=== PATIENT | male | born 1970 | race Caucasian/White ===

== ENCOUNTER 2019-01-02 13:00 | Emergency (ER) | payer MEDICAID ==
[~2019-01-02] VITALS: Ht 172.7 cm; Wt 68.2 kg
[2019-01-02 13:04] VITALS: BP 150/87
--- NOTE | 2019-01-02 13:44 | NUR ---
C/O NAUSEA "I TOOK A NAP AND WOOK UP WITH ABD PAIN. I THINK I ATE SOMETHING BAD. MAYBE SOME BATTERIES OR FUNNY FOOD." PATIENT DENIES ILLICITS. HOWEVER, SELLING MANAGER SUSPECTS STIMULANT USE DENIES DIARRHEA
--- NOTE | 2019-01-02 13:50 | NUR ---
PATIENT TO RADIOLOGY
[2019-01-02 14:19] LABS: BASOPHILS # (AUTO) 0.03 x10^3/uL (0-0.1); BASOPHILS % (AUTO) 0 % (0-1); EOSINOPHILS % (AUTO) 0 % (1-7); LYMPHOCYTES # (AUTO) 1.67 x10^3/uL (1-3.4); LYMPHOCYTES % (AUTO) 21 % (22-44); MD NO; MEAN CORPUSCULAR HEMOGLOBIN 31.7 pg (27.5-34.5); MEAN CORPUSCULAR HGB CONC 33.6 g/dL (33.2-36.2); MEAN CORPUSCULAR VOLUME 94.2 fL (81-97); MEAN PLATELET VOLUME 7.7 fL (7.4-10.4); MONOCYTES # (AUTO) 0.72 x10^3/uL (0.2-0.8); MONOCYTES % (AUTO) 9 % (2-9); NEUTROPHILS # (AUTO) 5.61 x10^3/uL (1.8-6.8); NEUTROPHILS % (AUTO) 70 % (42-75); PLATELET COUNT 325 x10^3/uL (130-400); RED BLOOD COUNT 5.01 x10^6/uL (4.38-5.82); RED CELL DISTRIBUTION WIDTH 12.6 % (9.4-14.8)
[2019-01-02 14:31] LABS: ALANINE AMINOTRANSFERASE 55 U/L (12-78); ANION GAP 9 mmol/L (5-15); CALCIUM 9.1 mg/dL (8.5-10.1); CHLORIDE 105 mmol/L (98-107); CREATININE 0.98 mg/dL (0.7-1.3); SALICYLATE LEVEL < 1.7 mg/dL (2.8-20.0)
[2019-01-02 14:45] LABS: ALKALINE PHOSPHATASE 65 U/L (45-117); BILIRUBIN,TOTAL 0.6 mg/dL (0.2-1.0)
--- NOTE | 2019-01-02 14:50 | NUR ---
WITH REASSESSMENT NAUSEA IMPROVED PATIENT UPDATED ON POC (WAITING ON TESTING RESULTS) REPORT TO ZAKI GATES
== END 2019-01-02 15:35 | disposition home or self-care (01) ==
LOC: ED 14:14
DX: F29 Unspecified psychosis not due to a substance or known physiological condition (principal); F20.0 Paranoid schizophrenia; F10.950 Alcohol use, unspecified with alcohol-induced psychotic disorder with delusions; R10.84 Generalized abdominal pain; F17.200 Nicotine dependence, unspecified, uncomplicated
CPT/HCPCS: 36415; 71045; 74018; 80053; 80307; 85025; 99284

== ENCOUNTER 2019-10-08 17:08 | Emergency (ER) | payer SELFPAY ==
[~2019-10-08] VITALS: Ht 172.7 cm; Wt 65.3 kg
--- NOTE | 2019-10-08 17:11 | NUR ---
RESIDENT CARE ASSOCIATE: NO ANSWER X1 TO TRIAGE AT THIS TIME
[2019-10-08 17:21] VITALS: BP 144/86
--- NOTE | 2019-10-08 17:46 | NUR ---
PT STATES "IM FRIED MOM" PT ON PHONE WITH MOTHER, YELLING, REFUSING TO GET OFF PHONE OR LOWER VOICE, PT WITH HAND IN PANTS. SECURITY CALLED TO ASSIST PT TO [place], PT STATES AT THIS TIME HE WILL BE COOPERATIVE. PT TO SHARM[place]A AT THIS TIME.
[2019-10-08] MEDS ORDERED: LORazepam 1MG TABLET ONE (17:58)
[2019-10-08] MEDS ORDERED: LORazepam 1MG TABLET PO ONE (18:00)
[2019-10-08] MEDS ORDERED: DIPH,PERTUSS(ACELL),TET VAC/PF 0.5 ML IM-VACC ONE ×2 (19:20→19:30)
== END 2019-10-08 19:54 | disposition home or self-care (01) ==
LOC: ED 18:05
DX: F16.121 Hallucinogen abuse with intoxication with delirium (principal); I51.7 Cardiomegaly; F17.200 Nicotine dependence, unspecified, uncomplicated
CPT/HCPCS: 90471; 90715; 93005; 99283

== ENCOUNTER 2019-10-10 00:05 | Emergency (ER) | payer MEDICAID ==
[~2019-10-10] VITALS: Ht 180.3 cm; Wt 80.0 kg
--- NOTE | 2019-10-10 00:33 | NUR ---
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 PT WAS AGITATED AND UNABLE TO FOLLOW COMMANDS OF EMS OR [facility]. EMS REPORTS PT WAS DIAPHORETIC AND TACHYPNEIC. EMS ADMINISTERED 300MG OF KETAMINE IM, AND A TOTAL OF VERSED 7MG. PT IN RESTRAINTS UPON ARRIVAL TO THE ER, BECAME AGITATED WHEN MOVING PT FROM EMS STRETCHER. SECURITY CALLED AND PT CONTINUED IN 4 POINT RESTRAINTS FOR THE SAFETY OF HIMSELF AND STAFF. DR. AL AT BEDSIDE.
[2019-10-10] MEDS ORDERED: HALOPERIDOL 5 MG/ML ONE (00:53)
[2019-10-10] MEDS ORDERED: HALOPERIDOL 5 MG/ML IM ONE (01:00)
--- NOTE | 2019-10-10 01:02 | NUR ---
PT CONTINUES TO BE LOUD, SCREAMING, JERKING AT RESTRAINTS. PULLED IV OUT. PT MEDICATED WITH 10MG OF IM HALDOL. ALL MONITORING EQUIPMENT REMAINS IN PLACE.
--- NOTE | 2019-10-10 01:14 | NUR ---
TASK RN: LAB IN TO DRAW. PT RESTLESS/YELLING. TECH X TWO AT BEDSIDE TO ASSIST WITH LAB DRAW
[2019-10-10 01:33] LABS: ALANINE AMINOTRANSFERASE 118 U/L (12-78); ALBUMIN 3.9 g/dL (3.4-5.0); ANION GAP 9 mmol/L (5-15); CALCIUM 9.4 mg/dL (8.5-10.1); CHLORIDE 107 mmol/L (98-107)
[2019-10-10 01:35] LABS: ALKALINE PHOSPHATASE 56 U/L (45-117); BILIRUBIN,TOTAL 1.5 mg/dL (0.2-1.0); TOTAL PROTEIN 6.9 g/dL (6.4-8.2)
--- NOTE | 2019-10-10 01:36 | NUR ---
TASK RN: PT NOW MOSTLY DROWSY. EVEN/REGULAR RESPIRATIONS NOTED. VS WNL. RESTRAINTS REMAIN IN PLACE PENDING CONTINUED IMPROVED BEHAVIOR. DISTAL EXTREMITIES WITH GOOD CAP REFILL. SITTER PRESENT.
[2019-10-10 01:40] LABS: BASOPHILS # (AUTO) 0.03 x10^3/uL (0-0.1); BASOPHILS % (AUTO) 0 % (0-1); EOSINOPHILS % (AUTO) 0 % (1-7); LYMPHOCYTES # (AUTO) 0.95 x10^3/uL (1-3.4); LYMPHOCYTES % (AUTO) 6 % (22-44); MD NO; MEAN CORPUSCULAR HEMOGLOBIN 32.5 pg (27.5-34.5); MEAN CORPUSCULAR HGB CONC 34.5 g/dL (33.2-36.2); MEAN CORPUSCULAR VOLUME 94.2 fL (81-97); MEAN PLATELET VOLUME 7.9 fL (7.4-10.4); MONOCYTES # (AUTO) 0.83 x10^3/uL (0.2-0.8); MONOCYTES % (AUTO) 5 % (2-9); NEUTROPHILS # (AUTO) 15.32 x10^3/uL (1.8-6.8); NEUTROPHILS % (AUTO) 90 % (42-75); PLATELET COUNT 374 x10^3/uL (130-400); RED CELL DISTRIBUTION WIDTH 13.1 % (9.4-14.8)
--- NOTE | 2019-10-10 02:28 | NUR ---
PT YELLING. THIS RN ASKED PT WHY HE WAS YELLING AND HE STATES "THIS SHIT IS HURTING MY ARM". PT ABLE TO CONVERE AT THIS TIME, ANSWERING MOST QUESTIONS APPROPRIATELY. DOES NOT RECALL PRIOR EVENTS LEADING UP TO HIS VISIT HERE. PT EDUCATED ON WHY HE WAS PLACED IN RESTRAINTS. PT STATES HE WILL COOPERATE. SECURITY CALLED AND PT PLACED IN 2 POINT RESTRAINTS.
--- NOTE | 2019-10-10 02:53 | NUR ---
PT COOPERATIVE, SLEEPING, RESPIRATIONS EVEN AND UNLABORED. NO DISTRESS NOTED. VITALS STABLE.
--- NOTE | 2019-10-10 03:09 | NUR ---
PT CONTINUES TO BE COOPERATIVE. ALL RESTRAINTS REMOVED. PT PROVIDED WITH WATER AND FOOD.
[2019-10-10 03:31] VITALS: BP 125/71
--- NOTE | 2019-10-10 04:10 | NUR ---
PT CONTINUES TO SLEEP. ALL VITALS STABLE.
--- NOTE | 2019-10-10 05:18 | NUR ---
PT WOKEN UP, ALERT AND ORIENTED. PT IS BEING DISCHARGED. PT STATES "I DON'T HAVE ANYWHERE TO GO, CAN I JUST SLEEP HERE". PT ADVISED HE CAN NO LONGER STAY HERE AND WILL BE PROVIDED A CAB VOUCHER TO THE RETIREMENT. "FUCK THAT, I AIN'T GOING TO NO RETIREMENT. I NEED A BUS TICKET TO MY UNCLE'S HOUSE IN [place]".
--- NOTE | 2019-10-10 05:33 | NUR ---
PT PROVIDED WITH NEW CLOTHING DUE TO HIS OTHER CLOTHING BEING SOILED.
--- NOTE | 2019-10-10 05:44 | NUR ---
PT HAS TO CONTINUALLY BE ASKED TO GET DRESSED, HE KEEPS LYING BACK DOWN ON THE BED AND FALLING ASLEEP. PT WOKEN UP MULTIPLE TIMES. HE CONTINUES TO SAY "I DON'T HAVE ANYWHERE TO GO", HE ALSO STATES "I'M GONNA FALL DOWN". PT HAS BEEN WALKING AROUND ROOM WITH A STEADY GAIT UNTIL HE WAS ASKED TO BE DISCHARGED. HE ALSO STATES "I NEED TO STAY, I NEED AN IV, I DON'T HAVE ANYWHERE TO GO". PT ALSO OFFERED A CAB VOUCHER ONCE AGAIN REFUSES SAYING "FUCK THAT, I AINT GOING TO NO CARE HOME"
--- NOTE | 2019-10-10 05:50 | NUR ---
SECURITY CALLED TO ESCORT TO PT OUT
== END 2019-10-10 05:52 | disposition home or self-care (01) ==
LOC: ED 02:58
DX: F16.10 Hallucinogen abuse, uncomplicated (principal); F22 Delusional disorders; F23 Brief psychotic disorder
CPT/HCPCS: 36415; 80053; 85025; 96372; 99283; J1630

== ENCOUNTER 2019-10-17 16:27 | Emergency (ER) | payer MEDICAID ==
[~2019-10-17] VITALS: Ht 165.1 cm; Wt 65.0 kg
--- NOTE | 2019-10-17 16:47 | NUR ---
PT REFUSED BLOOD PRESSURE. PT REFUSES TO HOLD STILL FOR BLOOD PRESSURE
[2019-10-17] MEDS ORDERED: LORazepam 1MG TABLET PO ONE (17:30)
[2019-10-17] MEDS ORDERED: LORazepam 1MG TABLET ONE (17:30)
--- NOTE | 2019-10-17 17:46 | NUR ---
PT REPORT FROM YAJAIRA AKERS. PT CARE TO BE ASSUMED. EKG DONE.
--- NOTE | 2019-10-17 17:47 | NUR ---
LAB AT BS. PT HAVING CONVERSATION WITH HIMSELF.
--- NOTE | 2019-10-17 17:48 | NUR ---
PT DENIES ALLERGIES. STATES "I WANT CODEINE THIS TIME. IT'S GOOD FOR MY STOMACH". STATES "IF CODEINE IS ON THERE, I WANT IT OFF". PT REQUESTING JUICE, VITAMINS, PENICILLIN. PT WAS GIVEN JUICE EARLIER; CUP OF WATER AT BEDSIDE.
[2019-10-17 17:55] VITALS: BP 158/116
[2019-10-17 17:57] LABS: MEAN CORPUSCULAR HEMOGLOBIN 32.2 pg (27.5-34.5); MEAN CORPUSCULAR HGB CONC 33.8 g/dL (33.2-36.2); MEAN CORPUSCULAR VOLUME 95.1 fL (81-97); MEAN PLATELET VOLUME 7.4 fL (7.4-10.4); PLATELET COUNT 424 x10^3/uL (130-400); RED BLOOD COUNT 6.11 x10^6/uL (4.38-5.82); RED CELL DISTRIBUTION WIDTH 13.7 % (9.4-14.8)
[2019-10-17 18:06] LABS: INTERNATIONAL NORMALIZED RATIO 0.94 (0.93-1.1)
[2019-10-17 18:10] LABS: ALANINE AMINOTRANSFERASE 90 U/L (12-78); ALBUMIN 4.3 g/dL (3.4-5.0); ANION GAP 11 mmol/L (5-15); CHLORIDE 106 mmol/L (98-107); CREATININE 1.32 mg/dL (0.7-1.3)
[2019-10-17 18:12] LABS: ALKALINE PHOSPHATASE 81 U/L (45-117); BILIRUBIN,TOTAL 1.3 mg/dL (0.2-1.0); TOTAL PROTEIN 8.2 g/dL (6.4-8.2)
[2019-10-17 18:19] LABS: MD YES
[2019-10-17 19:12] LABS: BAND#(MANUAL) 3.13 x10^3/uL; BANDS%(MANUAL) 17 % (0-7); BASOS#(MANUAL) 0.18 x10^3/uL (0-0.1); BASOS% (MANUAL) 1 % (0-1); EOS#(MANUAL) 0.18 x10^3/uL (0.0-0.4); EOS% (MANUAL) 1 % (1-7); LYMPHS% (MANUAL) 6 % (22-44); MONOS#(MANUAL) 0.37 x10^3/uL (0.3-2.7); MONOS% (MANUAL) 2 % (2-9); SEG#(MANUAL) 13.43 x10^3/uL (1.8-6.8); SEGS% (MANUAL) 73 % (42-75)
[2019-10-17 19:14] LABS: <RBC MORPHOLOGY> NORMAL
[2019-10-17 19:15] LABS: <PLATELET ESTIMATE> INCREASED; <PLT MORPHOLOGY> NORMAL PLT MORPH
--- NOTE | 2019-10-17 19:47 | NUR ---
TAXI VOUCHER PROVIDED. PT ESCORTED TO EXIT PER SECURITY.
== END 2019-10-17 19:49 | disposition home or self-care (01) ==
LOC: ED 18:06
DX: R11.2 Nausea with vomiting, unspecified (principal); R19.7 Diarrhea, unspecified; R10.84 Generalized abdominal pain; R94.31 Abnormal electrocardiogram [ECG] [EKG]
CPT/HCPCS: 36415; 74021; 80053; 83690; 85025; 85610; 93005

== ENCOUNTER 2019-11-06 09:35 | Emergency (ER) | payer MEDICAID ==
[~2019-11-06] VITALS: Ht 175.3 cm; Wt 66.0 kg
--- NOTE | 2019-11-06 09:40 | NUR ---
COMMAND AND CONTROL SPECIALIST: PT IN RESTROOM AT TIME OF BEING CALLED
[2019-11-06 09:46] VITALS: BP 137/88
--- NOTE | 2019-11-06 09:59 | NUR ---
PT CAME IN CO OF BILAT HAND PAIN. "I WAS CLEANING MY MOMS BATHTUB AND SOME GLASS GOT INTO MY FINGERS"
--- NOTE | 2019-11-06 10:45 | NUR ---
PT GOT INTO AN ARUGMENT WITH HIS MOTHER. STARTED TO THROW THINGS AND THREATEN THE STAFF. SECURITY CAME AND THE PT LEFT WITHOUT TAKING HIS DC PAPERWORK. HE SAID "I DONT WANT THE PAPERWORK"
== END 2019-11-06 10:47 | disposition home or self-care (01) ==
LOC: ED 09:55
DX: S62.633A Displaced fracture of distal phalanx of left middle finger, initial encounter for closed fracture (principal); L03.113 Cellulitis of right upper limb; F17.210 Nicotine dependence, cigarettes, uncomplicated; W23.0XXA Caught, crushed, jammed, or pinched between moving objects, initial encounter; Y93.89 Activity, other specified; Y92.009 Unspecified place in unspecified non-institutional (private) residence as the place of occurrence of the external cause; Y99.8 Other external cause status
CPT/HCPCS: 29130; 99283